=== PATIENT | female | born 1970 | race Caucasian/White ===

== ENCOUNTER → 2019-12-19 16:04 | Outpatient (BNVA) | payer BC, SELFPAY | PROVIDERS: Visit Provider Obstetrics & Gynecology | DX: N92.0 Excessive and frequent menstruation with regular cycle (principal); Z12.4 Encounter for screening for malignant neoplasm of cervix | CPT/HCPCS: 84443; 85027; 88175 ==

== ENCOUNTER → 2019-12-25 13:09 | Outpatient (BNVA) | payer BC, SELFPAY | PROVIDERS: Visit Provider Obstetrics & Gynecology | DX: N94.6 Dysmenorrhea, unspecified (principal) | CPT/HCPCS: 76830 ==

== ENCOUNTER → 2019-12-30 11:59 | Outpatient (BNVA) | payer BC, SELFPAY | PROVIDERS: Visit Provider Obstetrics & Gynecology | DX: N92.0 Excessive and frequent menstruation with regular cycle (principal) | CPT/HCPCS: 88305 ==

== ENCOUNTER → 2020-09-24 09:22 | Outpatient (BNVA) | payer BC, SELFPAY | PROVIDERS: Visit Provider Obstetrics & Gynecology | DX: N92.0 Excessive and frequent menstruation with regular cycle (principal); Z30.9 Encounter for contraceptive management, unspecified | CPT/HCPCS: 85027 ==

== ENCOUNTER → 2020-09-30 16:29 | Outpatient (BNVA) | payer BC, SELFPAY | PROVIDERS: Visit Provider Obstetrics & Gynecology | DX: N92.0 Excessive and frequent menstruation with regular cycle (principal); Z30.9 Encounter for contraceptive management, unspecified; Z11.52 Encounter for screening for COVID-19 | CPT/HCPCS: 87635 ==

== ENCOUNTER 2020-10-06 07:54 | Day surgery (SDC) | payer BC, SELFPAY ==
[2020-09-29 08:18] VITALS: BMI 43.9
--- NOTE | 2020-09-29 10:25 | ANES.PREANE2 ---
Pre-Anesthetic Assessment Pre-Anesthetic Assessment: Height/Weight: Height 1.7 m Weight 127.459 kg Proposed Procedure: Operation Date: 10/06/20 11:25 Proposed Procedures p Hysteroscopy w/ Ablation w/ Novasure(Not Applicable) - MD brenden Potterg,Removal of Tubes Sterilization(Bilateral) - Dov Hoffman MD Was Beta Ana taken within 24 hours: N/A Was Clonidine taken within 24 hours: N/A Social: Social History: No alcohol and No tobacco Exam: Pre-Anes Outpt Exam: alert, oriented x 3, clear to auscultation bilaterally and regular rate & rhythm Airway: Submandibular: WNL Cervical ROM: WNL MP: 2 Dentition: Full GI: GI: GERD Metabolic: Metabolic: Morbid obesity Neuropsych: Neuropsych: VASQUEZ Anesthetic Plan: ASA status: 2 Anesthesia: General Risk of > 500 ml blood loss (7ml/kg in children): No PFSH Anesthesia PFSH: Medical History (Updated 09/24/20 @ 11:56 by Dov Hoffman MD) Depression Gastroesophageal reflux Hyperlipidemia Migraine headache Surgical History History of sinus surgery History of tonsillectomy and adenoidectomy Family History Grandmother Breast cancer paternal Family/Other Breast cancer maternal aunt Grandfather Heart disease great maternal Hypercholesteremia Mother Hypercholesteremia Thyroid disease Father Heart disease Social History Smoking and tobacco status: never smoked Alcohol intake: current Alcohol intake frequency: few times a week Other details last substance use: Denies drug use Female Reproductive History: Date of last menstrual period: 09/15/20 Data Anesthesia Cardiac Studies: No Data to Display
[2020-10-06] VITALS (7 sets, daily range): BP systolic 138–184; BP diastolic 74–91; PULSE 64–84; RESP 12–74; TEMP 36.3–36.9; O2SAT 97–100
--- NOTE | 2020-10-06 08:40 | P.ANESUD_ITS ---
Pre-Anesthetic Update Pre-Anesthetic Assessment: Date of Surgery/Procedure: 10/06/20 Preop Meche gnosis: Menorrhagia, Undesired fertility Proposed Procedure: Operation Date: 10/06/20 09:30 Proposed Procedures p Hysteroscopy w/ Ablation w/ Novasure(Not Applicable) - Dov Hoffman MD s Lap Fulg,Removal of Tubes Sterilization(Bilateral) - Dov Hoffman MD Any changes to Pre-Anesthetic Assessment?: No Last Intake: Intake Last Liquid Date 10/05/20 Last Liquid Time 22:00 Last Solid Date 10/05/20 Last Solid Time 19:00 Vitals: Temperature 97.3 F L 10/06/20 08:30 Temperature Source Temporal Artery S can 10/06/20 08:30 Pulse Rate 84 10/06/20 08:30 Pulse Rhythm 10/06/20 08:27 Pulse Strength 3+ Normal 10/06/20 08:27 Respiratory Rate 18 10/06/20 08:30 Blood Pressure 170/80 10/06/20 08:30 Blood Pressure Vandana n 110 10/06/20 08:30 Pulse Oximetry 97 10/06/20 08:30 Oxygen Delivery Me thod 10/06/20 08:30 Exam: Pre-Anes Outpt Exam: alert, oriented x 3, clear to auscultation bilaterally and regular rate & rhythm Cardiac Studies: No Data to Display
[2020-10-06] MEDS: acetaminophen 1,000 MG/100 ML PIGGYBACK 400 MG IV (08:46)
[2020-10-06] MEDS: sodium chloride 0.9% 1,000 ML 30 ML IV (08:47)
[2020-10-06] MEDS: ketorolac 30 mg/mL INJ IVP (08:50)
[2020-10-06] MEDS: gabapentin 300 mg Capsule PO (08:51)
[2020-10-06 08:59] LABS: OR HCG Qualitative Urine Negative (Negative)
--- NOTE | 2020-10-06 10:13 | W.PM.OPSUD ---
Surgery/Procedure H&P Update DATE OF PROCEDURE: October 06, 2020 DATE H&P PERFORMED: 09/24/20 H&P UPDATE INFORMATION: I have reviewed H&P completed within last 30 days, I have examined patient prior to procedure, No changes to prior documentation and H&P is in [facility] EMR on date indicated PREOP DIAGNOSIS: Menorrhagia, Undesired fertility PLANNED PROCEDURE: Operation Date: 10/06/20 09:30 Proposed Procedures p Hysteroscopy w/ Ablation w/ Novasure(Not Applicable) - MD brenden Potter,Removal of Tubes Sterilization(Bilateral) - Dov Hoffman MD
--- NOTE | 2020-10-06 11:37 | P.OP_ITS ---
Operative Report Date of procedure: October 06, 2020 Pre-op Diagnosis: Menorrhagia, Undesired fertility Post-op Diagnosis: Menorrhagia, Undesired fertility Procedure Done: Laparoscopic bilateral tubal fulguration with complete salpingectomy, Hysteroscopy with endometrial ablation with NovaSure Specimens removed/disposition: Right and left fallopian tubes Surgeon: Dov Hoffman Pressure Test Operator: None Anesthesia: General Estimated blood loss (mL): 10 IV fluids (mL): 1,200 Urine output (mL): 200 Complications: None Findings: First to second-degree uterine prolapse under anesthesia. Normal- appearing tubes, ovaries, and uterus. Brief History: Patient is a 50-year-old female 3, para 2-0-1-2 with an LMP of 09/15/2020 who is still having regular cycles. She is currently using control pills. She presented to the office initially for well woman exam in December 2019 reporting heavy periods with more clots and pain. She typically bleeds 6 to 7 days with 5 days being heavy. She would change an overnight tampon and pad at least every hour and would still bleed through to her clothing at times. She was reporting up to palm sized clots. This is despite already being on control pills. Due to her age, she had stopped the control pills in the hopes that she would be menopausal and would not need anything done for the bleeding. However, she continued to have cycles off of the pills, but not as regular in timing. She then went back on the pills for regulation of her cycles. She had a vaginal ultrasound with no fibroids seen. Endometrial biopsy was negative for cancer or precancerous changes. Because of the continued bl eeding, she is presenting for an endometrial ablation. In addition she did not want any further children and was having a sterilization performed at the time of the ablation. Procedure: Patient was taken to the operating room were general anesthesia was obtained. She was prepped and draped in the usual sterile fashion in the dorsal supine position with legs in Yan style stirrups. Sequential compression boots were placed prior to starting the case. Catheter was inserted and bladder was drained. Exam under anesthesia was performed and patient was found to have first to second-degree uterine prolapse. Weighted speculum was placed in the vagina and the cervix was grasped with a single-tooth tenaculum. A ZUMI was placed. The infraumbilical region was injected with 2% lidocaine with epinephrine. Skin incision was made with the knife in the lower edge of the navel and a size 5 trocar and sheath were inserted under direct visualization using an Optiview type technique. Trocar was removed and replaced with a laparoscope confirming intra-abdominal placement. The abdomen was inflated with carbon dioxide. The anterior abdominal wall was inspected and noted to be free of adhesions. In the left and right lower quadrants lateral to the inferior epigastric vessels, the skin was injected with 2% lidocaine with epinephrine. Skin incisions were made with a knife and a 5 mm trocar and sheath were inserted under direct visualization at each site. The pelvis was thoroughly inspected and uterus, tubes, and ovaries were normal in appearance. Using the Voyant sealing device, starting on the left side at the fimbriated end of the tube, the mesosalpinx was sealed and cut along the length of the tube. At the proximal end of the tube, the tube itself was sealed and cut. The fallopian tube was brought out through the port. Using the Voyant sealing device, starting on the right side at the fimbriated end of the tube, the mesosalpinx was sealed and cut along the length of the tube. At the proximal end of the tube, the tube itself was sealed and cut. The fallopian tube was brought out through the port. The dissection area was thoroughly inspected and noted to be hemostatic. The abdomen was deflated and the ports removed. The sites reapproximated well and Dermabond was applied to the skin. ZUMI was removed. A weighted speculum was placed in the vagina and the cervix was grasped with a single-tooth tenaculum. A paracervical block was performed with a total of 10 mL of 2% lidocaine with epinephrine used. Hysteroscope was able to be passed. Crystalloid solution was used as a distention media. The endometrial cavity was inspected and appeared normal. No polyps or fibroids noted. Using the NovaSure sound, endometrial cavity length was measured at 5.0 cm. The NovaSure device was inserted and device was deployed. The device was moved up and down and left and right until no further with adjustment occurred. Uterine width was measured at 4.4 cm. Settings were entered in the NovaSure machine and wattage was set at [address]. Cavity integrity check was performed and integrity confirmed. Device was then activated. Total treatment time was 1 minute 11 seconds. Device was removed. The tenaculum was removed and there was minimal bleeding from the tenaculum site. Patient tolerated the procedure well. Sponge and needle counts were correct. DRAINS: None POSTOPERATIVE STATUS: The patient was transferred to the recovery room in satisfactory condition DISPOSITION: Discharge to home when criteria was met. FOLLOWUP APPOINTMENT: Followup appointment had been scheduled on 10/23/2020 in my office. MEDICATIONS: [place] 5/325 mg, 1 to 2 tablets every 6 hours as needed for pain, #20, 0 refills May use [id number] ibuprofen. Resume usual home medications.
--- NOTE | 2020-10-06 11:55 | SUR.PHASEI ---
PT AWAKE ALERT ON RA TRIAL, PT TAKING OCC ICE CHIPS ABD SOFT WITH 3 SITES D/I
--- NOTE | 2020-10-06 12:09 | ANE.PACU2 ---
Inpatient post-anesthesia follow up: Airway intact: Yes Vital signs: Temperature 98.4 F Pulse Rate 75 Respiratory Rate 18 Blood Pressure 146/74 Pulse Oximetry 100 Oxygen Delivery Me thod Room Air Oxygen Flow Rate 8 Fraction of Inspir ed Oxygen Hydration adequate: Yes Nausea and vomiting: No Pain level: 3 Mental status: Baseline
[2020-10-06] MEDS: HYDROcodone-acetaminophen 5-325 mg Tablet 1 TAB PO (12:50)
== END 2020-10-06 13:10 | disposition home or self-care (01) ==
PROVIDERS: Visit Provider Obstetrics & Gynecology
PROC: 0U598ZZ Destruction of Uterus, Via Natural or Artificial Opening Endoscopic (ICD-10-PCS; CPT 58563; principal; 2020-10-06 09:20)
PROC: (CPT 58661; 2020-10-06 09:20)
DX: Z30.2 Encounter for sterilization (principal); N92.0 Excessive and frequent menstruation with regular cycle; N81.2 Incomplete uterovaginal prolapse; K21.9 Gastro-esophageal reflux disease without esophagitis; E66.01 Morbid (severe) obesity due to excess calories; Z68.41 Body mass index [BMI] 40.0-44.9, adult; E78.5 Hyperlipidemia, unspecified
CPT/HCPCS: 58563; 58661; 81025; 84703; 88302; 96365; 96374; J1100; J1885; J2405; J2704; J2710; J3010; J3490; J7030

== ENCOUNTER 2021-11-29 16:47 | Outpatient (CLI) | payer BC, SELFPAY | END 2021-11-29 16:48 | disposition home or self-care (01) | LOC: SLEEP 11-30 16:50 | PROVIDERS: PCP Nurse Practitioner Family; Visit Provider Nurse Practitioner Family | DX: G47.10 Hypersomnia, unspecified (principal) | CPT/HCPCS: G0399 ==

== ENCOUNTER 2022-03-14 09:35 | Outpatient (CLI) | payer BC, SELFPAY ==
--- NOTE | 2022-03-14 09:44 | MM_ITS ---
WS: [id number] SCREENING DIGITAL TOMOSYNTHESIS MAMMOGRAM WITH CAD HISTORY: SCREENING COMPARISON: None available. Bilateral CC and MLO with tomosynthesis views submitted. Synthetic mammography reviewed. Computer aid ed detection analyzed. Breast composition: The breasts are almost entirely fatty. No suspicious masses, microcalcifications or architectural distortion. MM/[id number] IMPRESSION: BI-RADS: 1-Negative FOLLOW UP: 1 Year Follow-up
== END 2022-03-14 09:36 | disposition home or self-care (01) ==
PROVIDERS: PCP Nurse Practitioner Family; Visit Provider Nurse Practitioner Family
DX: Z12.31 Encounter for screening mammogram for malignant neoplasm of breast (principal)
CPT/HCPCS: 77063; 77067

== ENCOUNTER → 2022-10-06 15:07 | Outpatient (BNVA) | payer BC, SELFPAY | PROVIDERS: PCP Nurse Practitioner Family; Visit Provider Emergency Medicine | DX: R30.0 Dysuria (principal); N30.01 Acute cystitis with hematuria | CPT/HCPCS: 81000; 87086 ==

== ENCOUNTER 2023-12-06 07:25 | Day surgery (SDC) | payer BC, SELFPAY ==
[2023-12-06 07:44] VITALS: BP 151/111; PULSE 73; RESP 16; TEMP 36.3; O2SAT 96
[2023-12-06 07:46] VITALS: BMI 45.4
--- NOTE | 2023-12-06 07:59 | ANES.PREANE2 ---
Pre-Anesthetic Assessment Height/Weight: Height 1.7 m Weight 131.542 kg Temp Pulse Resp BP Pulse Ox O2 Del Method 97.3 F L 73 16 151/111 96 Room Air 12/06/23 07:44 12/06/23 07:44 12/06/23 07:44 12/06/23 07:44 12/06/23 07:44 12/06/23 07:44 Operation Date: 12/06/23 08:30 Proposed Procedures p EGD(Not Applicable) - DO brenden Martínez Colonoscopy(Not Applicable) - Bert Maza DO Familial anesthetic complications: none Was Beta Ana taken within 24 hours: N/A Was Clonidine taken within 24 hours: N/A Last intake: Intake Last Liquid Date 12/05/23 Last Liquid Time 22:00 Last Solid Date 12/04/23 Last Solid Time 20:00 Social No alcohol and No tobacco Exam alert, oriented x 3, clear to auscultation bilaterally and regular rate & rhythm Airway Mallampati: Class III Dentition: chipped (front upper chipped, upper missing/pulled) GI Gastroesophageal Reflux Disease Metabolic Hyperlipidemia and Morbid Obesity Anesthetic Plan ASA status: 2 Anesthesia: MAC Risk of > 500 ml blood loss (7ml/kg in children): No Medications/Allergies Home Medications Medication Instructions Recorded Confirmed Last Taken Type atorvastatin 40 mg tablet (Lipitor) 40 mg PO DAILY 12/19/19 12/04/23 2 Weeks Ago History ~11/20/23 cetirizine 10 mg tablet (Zyrtec) 10 mg PO DAILY 12/19/19 12/06/23 12/06/23 History duloxetine 30 mg capsule,delayed 30 mg PO BID 12/19/19 12/04/23 12/04/23 History release (Cymbalta) albuterol sulfate 90 mcg/actuation 2 puff inhalation Q6H PRN 02/08/23 12/06/23 12/06/23 Rx aerosol inhaler shortness of breath or wheezing #8.5 grams pantoprazole 40 mg tablet,delayed 40 mg PO BID 6 weeks #84 tabs 10/16/23 12/04/23 12/04/23 Rx release (Protonix) Allergies Allergy/AdvReac Type Severity Reaction Status Date / Time Sulfa (Sulfonamide Allergy swelling, Verified 02/08/23 13:20 Antibiotics) hives [facility] Anesthesia Medical History (Updated 10/16/23 @ 08:36 by Bert Maza DO) Family history of colon cancer Gastroesophageal reflux Migraine headache Hyperlipidemia Depression Surgical History S/P endometrial ablation (10/06/20) Hysteroscopic endometrial ablation with NovaSure. Performed by Dr. Hoffman at [facility] in [place], [place]. S/P tubal ligation (10/06/20) Laparoscopic complete salpingectomy. Performed by Dr. Hoffman at [facility] in [place], [place]. History of sinus surgery History of tonsillectomy and adenoidectomy Family History Grandmother Breast cancer paternal Family/Other Breast cancer maternal aunt Grandfather Heart disease great maternal Hypercholesteremia Mother Hypercholesteremia Thyroid disease Father Heart disease Social History Smoking and tobacco/nicotine status: never used tobacco/nicotine Alcohol intake: current Alcohol intake frequency: few times a week Substance/Drug Use: never Female Reproductive History Spontaneous abortions: No Data Anesthesia Cardiac Studies: No Data to Display
[2023-12-06] MEDS: sodium chloride 0.9% 1,000 ML 30 ML IV (08:00)
--- NOTE | 2023-12-06 08:37 | PM.HP ---
Providers/Chief Complaint Primary Care Provider: Madyson Granados NP Chief Complaint: K21.9, Z12.11 History of Present Illness Cass Chopra is a 53 year old female Review of Systems General: Reports: 10 or more systems reviewed and unremarkable except in HPI and below Medications/Allergies Home Medications Medication Instructions Recorded Confirmed Last Taken Type atorvastatin 40 mg tablet (Lipitor) 40 mg PO DAILY 12/19/19 12/04/23 2 Weeks Ago History ~11/20/23 cetirizine 10 mg tablet (Zyrtec) 10 mg PO DAILY 12/19/19 12/06/23 12/06/23 History duloxetine 30 mg capsule,delayed 30 mg PO BID 12/19/19 12/04/23 12/04/23 History release (Cymbalta) albuterol sulfate 90 mcg/actuation 2 puff inhalation Q6H PRN 02/08/23 12/06/23 12/06/23 Rx aerosol inhaler shortness of breath or wheezing #8.5 grams pantoprazole 40 mg tablet,delayed 40 mg PO BID 6 weeks #84 tabs 10/16/23 12/04/23 12/04/23 Rx release (Protonix) Allergies Allergy/AdvReac Type Severity Reaction Status Date / Time Sulfa (Sulfonamide Allergy swelling, Verified 02/08/23 13:20 Antibiotics) hives PFSH Acute PFSH: Medical History (Updated 10/16/23 @ 08:36 by Bert Maza DO) Family history of colon cancer Gastroesophageal reflux Migraine headache Hyperlipidemia Depression Surgical History S/P endometrial ablation (10/06/20) Hysteroscopic endometrial ablation with NovaSure. Performed by Dr. Hoffman at [facility] in [place], [place]. S/P tubal ligation (10/06/20) Laparoscopic complete salpingectomy. Performed by Dr. Hoffman at [facility] in [place], [place]. History of sinus surgery History of tonsillectomy and adenoidectomy Family History Grandmother Breast cancer paternal Family/Other Breast cancer maternal aunt Grandfather Heart disease great maternal Hypercholesteremia Mother Hypercholesteremia Thyroid disease Father Heart disease Social History Smoking and tobacco/nicotine status: never used tobacco/nicotine Alcohol intake: current Alcohol intake frequency: few times a week Substance/Drug Use: never Female Reproductive History: Spontaneous abortions: No Vitals/I&O/Wt Last Vital Signs Temp 97.3 F L 12/06/23 07:44 Pulse 73 12/06/23 07:44 Resp 16 12/06/23 07:44 BP 151/111 12/06/23 07:44 Pulse Ox 96 12/06/23 07:44 O2 Del Method Room Air 12/06/23 07:44 Weight last 48 hrs Weight 290 lb A&P Assessment and plan (1) Gastroesophageal reflux: (2) Encounter for colonoscopy in patient with family history of colon cancer: (3) Family history of colon cancer: Plan EGD and colonoscopy Attestations Medical Necessity Statement*: Home Coding Level of Care Code Acute Code for Chg Fwd Diagnoses Gastroesophageal reflux K21.9 Encounter for colonoscopy in patient with family history of colon cancer Z12.11; Z80.0 Family history of colon cancer Z80.0
[2023-12-06 09:00] VITALS: BP 128/73; PULSE 73; RESP 12; TEMP 36.7; O2SAT 98
[2023-12-06 09:11] VITALS: BP 126/65; PULSE 70; RESP 16; O2SAT 98
--- NOTE | 2023-12-06 09:35 | ANE.PACU2 ---
Inpatient post-anesthesia follow up: Airway intact: Yes Vital signs: Temperature 98.0 F Pulse Rate 70 Respiratory Rate 16 Blood Pressure 126/65 Pulse Oximetry 98 Oxygen Delivery Me thod Room Air Oxygen Flow Rate Fraction of Inspir ed Oxygen Hydration adequate: Yes Nausea and vomiting: No Pain level: 1 Mental status: Baseline
== END 2023-12-06 09:38 | disposition home or self-care (01) ==
PROVIDERS: PCP Nurse Practitioner Family; Visit Provider Surgery
PROC: 0DJ08ZZ Inspection of Upper Intestinal Tract, Via Natural or Artificial Opening Endoscopic (ICD-10-PCS; CPT 43235; principal; 2023-12-06 08:30)
PROC: 0DJD8ZZ Inspection of Lower Intestinal Tract, Via Natural or Artificial Opening Endoscopic (ICD-10-PCS; CPT 45378; 2023-12-06 08:30)
DX: Z12.11 Encounter for screening for malignant neoplasm of colon (principal); K21.9 Gastro-esophageal reflux disease without esophagitis; Z80.0 Family history of malignant neoplasm of digestive organs; E78.5 Hyperlipidemia, unspecified; F32.A Depression, unspecified; K57.30 Diverticulosis of large intestine without perforation or abscess without bleeding; K64.8 Other hemorrhoids; K44.9 Diaphragmatic hernia without obstruction or gangrene; K20.90 Esophagitis, unspecified without bleeding; E66.01 Morbid (severe) obesity due to excess calories; Z68.42 Body mass index [BMI] 45.0-49.9, adult
CPT/HCPCS: 43239; 45378; 88305; J2704; J3490; J7030